=== PATIENT | male | born 1965 ===

== ENCOUNTER 2018-11-28 21:53 | Emergency (ER) | payer SELFPAY ==
[~2018-11-28] VITALS: Ht 177.8 cm; Wt 72.0 kg
[2018-11-28 22:32] LABS: BASOPHILS # (AUTO) 0.1 X10'3 (0-0.2); BASOPHILS % (AUTO) 0.7 % (0-1); EOSINOPHILS # (AUTO) 0.2 X10'3 (0-0.9); EOSINOPHILS % (AUTO) 2.2 % (0-6); HEMATOCRIT 35.1 % (42.0-52.0); HEMOGLOBIN 11.9 g/dl (14.0-17.9); LYMPHOCYTES # (AUTO) 1.8 X10'3 (1.1-4.8); LYMPHOCYTES % (AUTO) 24.8 % (21-51); MEAN CORPUSCULAR HEMOGLOBIN 30.3 PG (27.0-31.0); MEAN CORPUSCULAR HGB CONC 33.9 g/dL (33.0-36.5); MEAN CORPUSCULAR VOLUME 89.2 FL (78-98); MEAN PLATELET VOLUME 8.6 FL (7.4-10.4); MONOCYTES # (AUTO) 0.7 X10'3 (0-0.9); MONOCYTES % (AUTO) 9.1 % (2-12); NEUTROPHILS # (AUTO) 4.7 X10'3 (1.8-7.7); NEUTROPHILS % (AUTO) 63.2 % (42-75); PLATELET COUNT 168 X10'3 (140-440); RED BLOOD COUNT 3.93 X10'6 (4.70-6.10); RED CELL DISTRIBUTION WIDTH 13.7 % (11.5-14.5); WHITE BLOOD COUNT 7.4 X10'3 (4.5-11.0)
[2018-11-28 22:34] LABS: CLARITY,URINE CLEAR (Clear); COLOR,URINE YELLOW (Yellow); GLUCOSE, URINE NEGATIVE (Neg); KETONES,URINE TRACE mg/dl (Neg); LEUKOCYTE ESTERASE ,URINE NEGATIVE (Neg); NITRITES, URINE NEGATIVE (Neg); OCCULT BLOOD,URINE NEGATIVE (Neg); PH,URINE 5.5 (4.8-8.0); PROTEIN,URINE TRACE mg/dl (Neg)
[2018-11-28 22:36] LABS: UA COLLECTION TYPE CLN CATCH MIDSTREAM
[2018-11-28 22:40] LABS: AMORPHOUS URATES 1+; BACTERIA,URINE FEW /HPF (Neg); CAL OXALATE CRYSTALS 1+ /HPF (NEGATIVE); MUCUS STRANDS MODERATE /LPF (Neg); RBC,URINE NONE SEEN /HPF (0-2); SQUAMOUS EPITHELIAL CELL,UR FEW /LPF (FEW); WBC,URINE 0-4 /HPF (0-4)
[2018-11-28 22:44] LABS: URINE AMPHETAMINE SCREEN POSITIVE (Neg); URINE BARBITUATE SCREEN NEGATIVE (Neg); URINE BENZODIAZEPINES SCREEN NEGATIVE (Neg); URINE CANNABINOID SCREEN POSITIVE (Neg); URINE COCAINE SCREEN NEGATIVE (Neg); URINE METHADONE SCREEN NEGATIVE (Neg); URINE OPIATE SCREEN NEGATIVE (Neg); URINE PHENCYCLIDINE SCREEN NEGATIVE (Neg)
[2018-11-28 22:47] LABS: ALANINE AMINOTRANSFERASE 45 U/L (12-78); ALBUMIN 3.6 G/DL (3.4-5.0); ALBUMIN/GLOBULIN RATIO 1.1 (1.1-1.5); ALKALINE PHOSPHATASE 86 IU/L (46-116); ANION GAP 8 (8-16); ASPARTATE AMINO TRANSFERASE 33 U/L (10-37); BILIRUBIN,TOTAL 0.6 MG/DL (0.1-1.0); BLOOD UREA NITROGEN 20 MG/DL (7-18); BUN/CREATININE RATIO 19.6 (5.4-32.0); CALCIUM 8.6 MG/DL (8.5-10.1); CHLORIDE 106 MMOL/L (99-107); CREATININE 1.02 MG/DL (0.60-1.10); GLUCOSE 83 MG/DL (70-104); POTASSIUM 3.5 MMOL/L (3.5-5.1); SODIUM 142 MMOL/L (135-145); TOTAL CARBON DIOXIDE 28.1 MMOL/L (24-32); eGFR 76 ML/MIN
[2018-11-28 22:59] LABS: ETHANOL < 0.010 GM/DL (0.0-0.010)
[2018-11-28] MEDS ORDERED: OLANZapine 2.5MG tablet PO SCH (23:10)
--- NOTE | 2018-11-29 01:19 | NUR ---
pt originally gave incorrect name and to registration. pt had identification in belongings so correct name and has been updated.
--- NOTE | 2018-11-29 01:20 | NUR ---
pt is sleeping, occasionally talks in his sleep.
--- NOTE | 2018-11-29 02:34 | NUR ---
pt is sleeping on back with blanket over head. no s/s of distress noted.
--- NOTE | 2018-11-29 04:49 | NUR ---
pt continues to sleep, no needs at this time.
--- NOTE | 2018-11-29 06:30 | NUR ---
Asleep in bed upon change of shift observation with covers pulled over his head. Growled at staff when staff attempted to engage with him.
--- NOTE | 2018-11-29 08:30 | NUR ---
Breakfast tray brought to patient. Patient awakened and ate 100% of his meal. Accepted his medication as ordered. Returned immediately to sleep afterwards.
[2018-11-29] MEDS: OLANZapine 5mg rapidly disint. tablet PO SCH (09:38)
--- NOTE | 2018-11-29 11:30 | NUR ---
Awakened by [facility] for an evaluation to determine criteria for 5150 status. Patient determined to meet criteria. Placed on a 5150. Patient informed. Accepted information without comment.
--- NOTE | 2018-11-29 13:30 | NUR ---
Awakened for lunch. Ate 100% of his meal. Returned to sleep immediately afterwards.
--- NOTE | 2018-11-29 16:46 | NUR ---
Patient has slept throughout the day. He did not get out of bed once. Question dehydration. Patient did not want to interact with staff at any time.
--- NOTE | 2018-11-29 18:30 | NUR ---
Pt resting in bed, respirations normal, no s/s of distress.
[2018-11-30 05:45] VITALS: BP 101/64
--- NOTE | 2018-11-30 06:37 | NUR ---
Patient sleeping supine with covers over his head. No distress observed. Continue to monitor.
--- NOTE | 2018-11-30 07:40 | NUR ---
Patient continues to sleep. No distress observed. Continue to monitor.
--- NOTE | 2018-11-30 08:30 | NUR ---
Patient eating breakfast and took his medication. No distress observed. Patient is depressed and feeling the same as when he arrived. Continue to monitor.
[2018-11-30] MEDS: OLANZapine 5mg rapidly disint. tablet PO SCH (08:44)
--- NOTE | 2018-11-30 09:40 | NUR ---
Patient sleeping on left side. No distress observed. Continue to monitor.
--- NOTE | 2018-11-30 11:10 | NUR ---
[facility] accepted patient. Patient continues to sleep. Continue to monitor.
--- NOTE | 2018-11-30 12:20 | NUR ---
Patient ambulatory to [facility], steady gait. 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
== END 2018-11-30 12:39 ==
LOC: ER 21:54 → EDBD 21:54 → ER 11-30 12:39
DX: F20.9 Schizophrenia, unspecified (principal); F12.90 Cannabis use, unspecified, uncomplicated; R94.6 Abnormal results of thyroid function studies; Z60.2 Problems related to living alone; Z59.0 Homelessness
CPT/HCPCS: 36415; 80053; 80305; 80320; 81001; 84443; 85025; 99285